=== PATIENT | female | born 1995 | race African-American/Black ===

== ENCOUNTER 2018-09-16 14:05 | Emergency (ER) | payer OTHER ==
[~2018-09-16] VITALS: Ht 180.3 cm; Wt 106.6 kg
[2018-09-16 14:06] VITALS: BP 119/75
[2018-09-16] MEDS ORDERED: LEVAQUIN 750 M750 MG PO (15:36)
== END 2018-09-16 15:50 | disposition home or self-care (01) ==
LOC: ER 14:05
DX: S90.851A Superficial foreign body, right foot, initial encounter (principal); W45.8XXA Other foreign body or object entering through skin, initial encounter; Y92.89 Other specified places as the place of occurrence of the external cause; Y93.89 Activity, other specified; Y99.8 Other external cause status

== ENCOUNTER 2019-01-23 17:45 | Emergency (ER) | payer OTHER ==
[~2019-01-23] VITALS: Ht 180.3 cm; Wt 104.8 kg
[~2019-01-23 17:45] MED LIST: LEVAQUIN 750 M750 MG PO
[2019-01-23 17:46] VITALS: BP 121/85
== END 2019-01-23 18:20 | disposition home or self-care (01) ==
LOC: ER 17:45
DX: J06.9 Acute upper respiratory infection, unspecified (principal); R51 Headache

== ENCOUNTER 2019-06-11 17:31 | Emergency (ER) | payer OTHER ==
[~2019-06-11] VITALS: Ht 180.3 cm; Wt 104.8 kg
[2019-06-11 17:34] VITALS: BP 157/81
== END 2019-06-11 18:21 | disposition home or self-care (01) ==
LOC: ER 17:31
DX: J06.9 Acute upper respiratory infection, unspecified (principal)

== ENCOUNTER 2019-08-01 17:56 | Emergency (ER) | payer OTHER ==
[~2019-08-01] VITALS: Ht 180.3 cm; Wt 104.3 kg
[2019-08-01] MEDS ORDERED: MAGIC MOUTHWASH SWISH&SPIT (19:35)
[2019-08-01] MEDS ORDERED: PENICILLIN V P500 MG PO (19:35)
[2019-08-01] MEDS ORDERED: PREDNISONE 20 M20 M1 PO (19:35)
[2019-08-01 23:37] VITALS: BP 124/76
== END 2019-08-01 23:38 | disposition home or self-care (01) ==
LOC: ER 17:56
DX: J02.0 Streptococcal pharyngitis (principal)

== ENCOUNTER 2020-12-24 23:29 | Emergency (ER) | payer OTHER ==
[~2020-12-24] VITALS: Ht 180.3 cm; Wt 111.1 kg
[~2020-12-24 23:29] MED LIST changes: +MAGIC MOUTHWASH SWISH&SPIT; +PENICILLIN V P500 MG PO; +PREDNISONE 20 M20 M1 PO
[2020-12-24 23:36] VITALS: BP 149/70
[2020-12-24] MEDS ORDERED: ZYRTEC-D TABLE1 EAC1 PO (23:41)
[2020-12-25] MEDS ORDERED: AMOXICILLIN875 MG PO (00:49)
== END 2020-12-25 01:06 | disposition home or self-care (01) ==
LOC: ER 23:29
DX: J02.9 Acute pharyngitis, unspecified (principal); H92.02 Otalgia, left ear; K08.89 Other specified disorders of teeth and supporting structures; Z79.899 Other long term (current) drug therapy